=== PATIENT | male | born 1955 | race Caucasian/White ===

== ENCOUNTER 2022-10-06 22:14 | Inpatient (IN) | payer MEDICARE ==
[2022-10-07] MEDS ORDERED: Ondansetron PF 4 MG/2 ML Vial IVP PRN (00:37)
[2022-10-07] MEDS ORDERED: Ondansetron ODT 4 MG TAB PO PRN (00:37)
[2022-10-07] MEDS ORDERED: Electrolyte Replacement Protocol 1 EACH FS SCH (00:45)
[2022-10-07 03:23] VITALS: BMI 25.0
[2022-10-07] MEDS ORDERED: Enoxaparin Sodium 80 MG/0.8 ML SYRINGE ONE (05:05)
[2022-10-07] MEDS: Levothyroxine Sodium 112 MCG TAB PO SCH (05:34)
[2022-10-07] MEDS: Potassium Chloride 20 MEQ in Lactated Ringer's 1,000 ML IV SCH ×2 (05:35→17:04)
[2022-10-07] MEDS: Liothyronine Sodium 5 MCG TAB PO SCH (05:35)
[2022-10-07 06:59] LABS: Magnesium 1.9 mg/dL (1.6-2.6); Phosphorus 2.9 mg/dL (2.3-4.7)
[2022-10-07 07:10] LABS: #Eosinphils 0.2 thou/uL (0.0-0.7); #Lymphocytes 0.6 thou/uL (1.20-3.40); #Monocytes 0.5 thou/uL (0.11-0.59); #Neutrophils 5.6 thou/uL (1.40-6.50); %Basophils 0.3 % (0.0-1.0); %Eosinophils 3.2 % (0.0-10.0); %Lymphocytes 8.6 % (21.0-51.0); %Neutrophils 80.9 % (42.0-75.0); Hemoglobin 12.2 g/dL (14.0-18.0); Mean Corpuscular HGB CONC 33.9 g/dL (32.0-36.0); Mean Corpuscular Hemoglobin 33.1 pg (27.0-31.0); Mean Corpuscular Volume 97.7 fl (78.0-98.0); Mean Platelet Volume 8.5 fL (7.4-10.4); Platelet Count 120 10x3/uL (130-400); RBC Distribution Width 12.2 % (11.5-14.5); Red Blood Cell (RBC) Count 3.69 mill/uL (4.70-6.10)
[2022-10-07 07:22] LABS: Troponin I 0.181 ng/mL (< 0.028)
[2022-10-07 07:24] LABS: ALT (SGPT) 50 U/L (8-55); AST (SGOT) 50 U/L (5-34); Albumin 3.1 g/dL (3.4-4.8); Alkaline Phosphatase 86 U/L (40-110); Anion Gap 13 mmol/L (10-20); BUN (Urea Nitrogen) 29 mg/dL (8.4-25.7); Bilirubin, Total 0.6 mg/dL (0.2-1.2); Calc. Creatinine Clearance 48 mL/min (70-130); Calcium 8.3 mg/dL (7.8-10.44); Carbon Dioxide 22 mmol/L (23-31); Chloride 107 mmol/L (98-107); Estimated GFR 45; Globulin 1.9 g/dL (2.4-3.5); Glucose 98 mg/dL (80-115); Potassium 3.4 mmol/L (3.5-5.1); Sodium 139 mmol/L (136-145)
[2022-10-07] MEDS ORDERED: Cefepime 1 GM in Sodium Chloride 0.9% 100 ML IVPB SCH ×2 (08:00→20:00)
[2022-10-07] MEDS ORDERED: Electrolyte Replacement Protocol FS PRN (08:15)
[2022-10-07] MEDS ORDERED: Magnesium 2 GM/50 ML(in water) 2 GM in Premix Bag 1 BAG IVPB SCH (08:15)
[2022-10-07] MEDS ORDERED: Potassium Chloride 20 MEQ TAB PO SCH ×2 (08:15→13:45)
[2022-10-07] MEDS: Acetaminophen 325 MG TAB PO PRN ×3 (08:53→21:16)
[2022-10-07 13:26] LABS: Potassium 3.3 mmol/L (3.5-5.1)
[2022-10-07] MEDS ORDERED: VANCOMYCIN 1.25 GM/250 ML BAG 1.25 GM in Premix Bag 1 BAG IVPB SCH (20:00)
[2022-10-07] MEDS ORDERED: cefTRIAXone\\ROCEPHIN 1 GM in Sodium Chloride 0.9% 100 ML IVPB SCH (21:30)
[2022-10-08] MEDS: Potassium Chloride 20 MEQ in Lactated Ringer's 1,000 ML IV SCH ×2 (00:38→16:54)
[2022-10-08] MEDS: Liothyronine Sodium 5 MCG TAB PO SCH (05:57)
[2022-10-08] MEDS: Levothyroxine Sodium 112 MCG TAB PO SCH (05:57)
[2022-10-08 06:39] LABS: #Eosinphils 0.2 thou/uL (0.0-0.7); #Lymphocytes 0.6 thou/uL (1.20-3.40); #Monocytes 0.7 thou/uL (0.11-0.59); #Neutrophils 4.8 thou/uL (1.40-6.50); %Basophils 0.3 % (0.0-1.0); %Eosinophils 2.7 % (0.0-10.0); %Lymphocytes 8.9 % (21.0-51.0); %Monocytes 11.8 % (0.0-10.0); %Neutrophils 76.4 % (42.0-75.0); Hemoglobin 11.6 g/dL (14.0-18.0); Mean Corpuscular HGB CONC 33.5 g/dL (32.0-36.0); Mean Corpuscular Hemoglobin 32.3 pg (27.0-31.0); Mean Corpuscular Volume 96.6 fl (78.0-98.0); Mean Platelet Volume 8.7 fL (7.4-10.4); Platelet Count 115 10x3/uL (130-400); RBC Distribution Width 12.2 % (11.5-14.5); White Blood Cell (WBC) Count 6.2 10x3/uL (4.8-10.8)
[2022-10-08 06:57] LABS: Anion Gap 10 mmol/L (10-20); BUN (Urea Nitrogen) 18 mg/dL (8.4-25.7); Calc. Creatinine Clearance 61 mL/min (70-130); Calcium 8.9 mg/dL (7.8-10.44); Carbon Dioxide 23 mmol/L (23-31); Chloride 108 mmol/L (98-107); Estimated GFR 60; Glucose 95 mg/dL (80-115); Magnesium 1.9 mg/dL (1.6-2.6); Potassium 3.8 mmol/L (3.5-5.1); Sodium 137 mmol/L (136-145)
[2022-10-08 07:01] LABS: ALT (SGPT) 55 U/L (8-55); AST (SGOT) 50 U/L (5-34); Alkaline Phosphatase 129 U/L (40-110); Anion Gap 11 mmol/L (10-20); BUN (Urea Nitrogen) 18 mg/dL (8.4-25.7); Bilirubin, Total 0.8 mg/dL (0.2-1.2); Calc. Creatinine Clearance 64 mL/min (70-130); Calcium 8.9 mg/dL (7.8-10.44); Carbon Dioxide 22 mmol/L (23-31); Chloride 107 mmol/L (98-107); Estimated GFR 63; Globulin 2.5 g/dL (2.4-3.5); Glucose 98 mg/dL (80-115); Potassium 3.8 mmol/L (3.5-5.1); Protein, Total 5.5 g/dL (5.8-8.1); Sodium 136 mmol/L (136-145)
[2022-10-08 07:06] LABS: Phosphorus 1.3 mg/dL (2.3-4.7)
[2022-10-08] MEDS ORDERED: Magnesium 2 GM/50 ML(in water) 2 GM in Premix Bag 1 BAG IVPB SCH (08:00)
[2022-10-08] MEDS: NIFEdipine XL 30 MG TAB PO SCH (08:08)
[2022-10-08] MEDS: Aspirin 81 mg Enteric Coated Tablet PO SCH (08:09)
[2022-10-08] MEDS: Acetaminophen 325 MG TAB PO PRN ×2 (08:09→12:06)
[2022-10-08] MEDS: PHOS-NAK 1 PKT PACK PO SCH ×4 (08:09→21:00)
[2022-10-08] MEDS ORDERED: Enoxaparin Sodium 40 MG/0.4 ML SYRINGE SC SCH (09:00)
[2022-10-08] MEDS ORDERED: Iopamidol-370 76% 500 ML 1 ML ONE (10:05)
[2022-10-08] MEDS: metroNIDAZOLE 500 MG in Premix Bag 1 BAG IVPB SCH ×2 (14:22→21:05)
[2022-10-08] MEDS: Enoxaparin Sodium 80 MG/0.8 ML SYRINGE SC SCH (21:05)
[2022-10-09] MEDS: metroNIDAZOLE 500 MG in Premix Bag 1 BAG IVPB SCH ×3 (05:32→20:47)
[2022-10-09] MEDS: Levothyroxine Sodium 112 MCG TAB PO SCH (05:32)
[2022-10-09] MEDS: Liothyronine Sodium 5 MCG TAB PO SCH (05:32)
[2022-10-09 06:22] LABS: #Eosinphils 0.3 thou/uL (0.0-0.7); #Lymphocytes 0.8 thou/uL (1.20-3.40); #Neutrophils 5.5 thou/uL (1.40-6.50); %Basophils 0.1 % (0.0-1.0); %Eosinophils 3.4 % (0.0-10.0); %Lymphocytes 10.4 % (21.0-51.0); %Monocytes 12.6 % (0.0-10.0); %Neutrophils 73.6 % (42.0-75.0); Mean Corpuscular HGB CONC 33.1 g/dL (32.0-36.0); Mean Corpuscular Hemoglobin 32.1 pg (27.0-31.0); Mean Platelet Volume 8.5 fL (7.4-10.4); Platelet Count 122 10x3/uL (130-400); RBC Distribution Width 12.3 % (11.5-14.5); Red Blood Cell (RBC) Count 3.43 mill/uL (4.70-6.10); White Blood Cell (WBC) Count 7.5 10x3/uL (4.8-10.8)
[2022-10-09 06:37] LABS: Anion Gap 9 mmol/L (10-20); BUN (Urea Nitrogen) 15 mg/dL (8.4-25.7); Calc. Creatinine Clearance 63 mL/min (70-130); Calcium 8.7 mg/dL (7.8-10.44); Carbon Dioxide 24 mmol/L (23-31); Chloride 105 mmol/L (98-107); Estimated GFR 63; Glucose 86 mg/dL (80-115); Potassium 3.9 mmol/L (3.5-5.1); Sodium 134 mmol/L (136-145)
[2022-10-09] MEDS: Aspirin 81 mg Enteric Coated Tablet PO SCH (08:30)
[2022-10-09] MEDS: Enoxaparin Sodium 80 MG/0.8 ML SYRINGE SC SCH ×2 (08:30→20:46)
[2022-10-09] MEDS: NIFEdipine XL 30 MG TAB PO SCH (08:30)
[2022-10-09] MEDS: Potassium Chloride 20 MEQ in Lactated Ringer's 1,000 ML IV SCH ×2 (09:01→23:25)
[2022-10-10] MEDS: metroNIDAZOLE 500 MG in Premix Bag 1 BAG IVPB SCH ×3 (05:55→21:18)
[2022-10-10] MEDS: Liothyronine Sodium 5 MCG TAB PO SCH (05:55)
[2022-10-10] MEDS: Levothyroxine Sodium 112 MCG TAB PO SCH (05:55)
[2022-10-10 07:04] LABS: Anion Gap 13 mmol/L (10-20); BUN (Urea Nitrogen) 14 mg/dL (8.4-25.7); Calc. Creatinine Clearance 71 mL/min (70-130); Calcium 9.4 mg/dL (7.8-10.44); Carbon Dioxide 21 mmol/L (23-31); Chloride 106 mmol/L (98-107); Estimated GFR 72; Glucose 95 mg/dL (80-115); Potassium 3.9 mmol/L (3.5-5.1); Sodium 136 mmol/L (136-145)
[2022-10-10] MEDS: Enoxaparin Sodium 80 MG/0.8 ML SYRINGE SC SCH ×2 (09:28→21:19)
[2022-10-10] MEDS: Aspirin 81 mg Enteric Coated Tablet PO SCH (09:28)
[2022-10-10] MEDS: NIFEdipine XL 30 MG TAB PO SCH (09:28)
[2022-10-10] MEDS: Potassium Chloride 20 MEQ in Lactated Ringer's 1,000 ML IV SCH ×2 (18:20→23:50)
[2022-10-10] MEDS: Acetaminophen 325 MG TAB PO PRN (21:20)
[2022-10-11] MEDS: metroNIDAZOLE 500 MG in Premix Bag 1 BAG IVPB SCH (05:04)
[2022-10-11] MEDS: Levothyroxine Sodium 112 MCG TAB PO SCH (05:05)
[2022-10-11] MEDS: Liothyronine Sodium 5 MCG TAB PO SCH (05:05)
[2022-10-11 09:06] VITALS: BP 129/75; TEMP 98.2
[2022-10-11] MEDS: Enoxaparin Sodium 80 MG/0.8 ML SYRINGE SC SCH (09:26)
[2022-10-11] MEDS: NIFEdipine XL 30 MG TAB PO SCH (09:27)
[2022-10-11] MEDS: Aspirin 81 mg Enteric Coated Tablet PO SCH (09:27)
== END 2022-10-11 10:15 | disposition home or self-care (01) | DRG 871 ==
LOC: T4-B 23:16 → OBSVTOIN 10-08 17:24
PROVIDERS: ADMIT Internal Medicine; ATTEND Internal Medicine
DX: A41.51 Sepsis due to Escherichia coli [E. coli] (principal); G93.41 Metabolic encephalopathy; I21.A1 Myocardial infarction type 2; K55.069 Acute infarction of intestine, part and extent unspecified; E87.20 Acidosis, unspecified; N17.9 Acute kidney failure, unspecified; K57.12 Diverticulitis of small intestine without perforation or abscess without bleeding; E03.9 Hypothyroidism, unspecified; Z96.653 Presence of artificial knee joint, bilateral; E87.6 Hypokalemia; I12.9 Hypertensive chronic kidney disease with stage 1 through stage 4 chronic kidney disease, or unspecified chronic kidney disease; N18.30 Chronic kidney disease, stage 3 unspecified; Z20.822 Contact with and (suspected) exposure to COVID-19; E88.09 Other disorders of plasma-protein metabolism, not elsewhere classified; D63.1 Anemia in chronic kidney disease; E83.39 Other disorders of phosphorus metabolism; E78.00 Pure hypercholesterolemia, unspecified; Z79.890 Hormone replacement therapy; Z79.899 Other long term (current) drug therapy
CPT/HCPCS: 36415; 74177; 76770; 80048; 80053; 83735; 84100; 84484; 85025; 93306; 96372; 96374; 96375; 96376; G0378; J0692; J0696; J1650; J1956; J3475; J3480; J3490; J7120; Q0162; Q9967

== ENCOUNTER 2022-11-10 09:20 | Outpatient (CLI) | payer MEDICARE, OTHER ==
[2022-11-10] MEDS ORDERED: Iopamidol-370 76% 500 ML 1 ML ONE (13:29)
== END 2022-11-10 09:21 | disposition home or self-care (01) ==
LOC: BICCT 09:20
PROVIDERS: ATTEND Internal Medicine Gastroenterology
DX: K55.069 Acute infarction of intestine, part and extent unspecified (principal)
CPT/HCPCS: 74174; 82565; Q9967

== ENCOUNTER 2022-12-14 08:36 | Outpatient (CLI) | payer MEDICARE, OTHER ==
[2022-12-14] MEDS ORDERED: Iopamidol-370 76% 500 ML 1 ML ONE (09:21)
== END 2022-12-14 08:37 | disposition home or self-care (01) ==
LOC: BICCT 08:36
PROVIDERS: ATTEND Internal Medicine Gastroenterology
DX: K57.12 Diverticulitis of small intestine without perforation or abscess without bleeding (principal); K55.069 Acute infarction of intestine, part and extent unspecified; N28.1 Cyst of kidney, acquired; K76.9 Liver disease, unspecified; K57.30 Diverticulosis of large intestine without perforation or abscess without bleeding; Z90.49 Acquired absence of other specified parts of digestive tract; Z91.89 Other specified personal risk factors, not elsewhere classified
CPT/HCPCS: 74177; 82565